=== PATIENT | female | born 1960 | race Caucasian/White ===

== ENCOUNTER 2021-12-04 07:16 | Outpatient (CLI) | payer OTHER, SELFPAY ==
--- NOTE | ~2021-12-04 | MM_ITS ---
EXAMINATION: MM screening sharee LT w lindsey HISTORY: Screening mammogram; status post left mastectomy in 1988 TECHNIQUE: Craniocaudal and mediolateral oblique 3-D tomosynthesis images were obtained and synthetic 2-D images were generated. CAD analysis was submitted and interpreted. COMPARISON: 08/05/2018 right screening mammogram BREAST PARENCHYMAL COMPOSITION: There are scattered areas of fibroglandular density. FINDINGS: There is no evidence of suspicious mass, calcification, or architectural distortion to sugg est malignancy in either breast. There has been no suspicious interval change. IMPRESSION: 1. No mammographic evidence of malignancy. 2. Recommend routine screening mammography in one year. BI-RADS Category 1: Negative Reviewed, dictated and finalized at location A.
== END 2021-12-04 07:17 | disposition home or self-care (01) ==
PROVIDERS: Visit Provider Family Medicine
DX: Z12.31 Encounter for screening mammogram for malignant neoplasm of breast (principal)
CPT/HCPCS: 77063; 77067

== ENCOUNTER → 2023-01-25 15:24 | Outpatient (CLI) | payer OTHER, SELFPAY ==
--- NOTE | ~2023-01-25 | US_ITS ---
EXAMINATION: US renal BI DATE: 01/25/2023 15:53 INDICATION: Hematuria TECHNIQUE: Multiple ultrasound grayscale images of the kidneys were obtained. COMPARISON: None. FINDINGS: The right kidney measures 10.3 x 4.2 x 5.0 cm. The left kidney measures 10.4 x 5.6 x 4.8 cm. The kidn eys demonstrate normal echogenicity. There is focal bulge along the periphery of the interpolar regio n of the left kidney with suggestion of a poorly defined approximately 2.5 cm isoechoic mass. There i s no hydronephrosis in either kidney. No stones identified. The bladder is normal. There are couple anechoic cysts in the right hepatic lobe the larger measuring 2.4 cm maximal diameter. IMPRESSION: 1. Possible 2.5 cm mass at the interpolar region of the left kidney. Alternatively could represent a normal variant dromedary hump or retained lobulation. Would recommend further evaluation with pre and postcontrast MRI or CT particularly given the history of hematuria. Reviewed, dictated and finalized at location A. IMPRESSION: 1. Possible 2.5 cm mass at the interpolar region of the left kidney. Alternati vely could represent a normal variant dromedary hump or retained lobulati on. Would recommend further evaluation with pre and postcontrast MRI or CT part icularly given the history of hematuria.
== END ==
PROVIDERS: PCP Family Medicine; Visit Provider Family Medicine
DX: R31.9 Hematuria, unspecified (principal); D50.9 Iron deficiency anemia, unspecified
CPT/HCPCS: 76775

== ENCOUNTER → 2023-02-10 07:45 | Outpatient (CLI) | payer OTHER, SELFPAY ==
--- NOTE | ~2023-02-10 | MR_ITS ---
EXAMINATION: MR renal wo/w con DATE: 02/10/2023 08:51 INDICATION: Abnormal contour to the left kidney on prior ultrasound. TECHNIQUE: Magnetic resonance imaging (MRI) of the abdomen was performed without and with 16 mL Multi sarah intravenous contrast. Sequences included coronal T2-weighted SS-FSE, coronal and axial FS 2D-F IESTA, axial STIR FSE, axial T2-weighted SS-FSE, axial T2-weighted FS SS-FSE, axial diffusion-weighte d SE, axial dual-echo T1-weighted FSPGR, and axial and coronal T1-weighted LAVA. Postcontrast axial T 1-weighted LAVA images were obtained in a time course. Postcontrast coronal T1-weighted LAVA images w ere obtained. COMPARISON: Ultrasound dated 01/25/2023 and MRI dated 04/20/2017 FINDINGS: Arch size is normal. No pericardial or pleural effusion. Status post left mastectomy with left breast implant. Small sliding-type hiatal hernia. There are few T2 hyperintense nonenhancing hepatic cysts the largest at the caudal tip of the right hepatic lobe measuring up to 3.1 cm. Gallbladder, spleen, pancreas and bilateral adrenal glands are normal. Dromedary hump at the lateral left kidney resulting from mass effect from the adjacent spleen and extending from the appearance on prior ultrasound. 4 m m T2 hyperintense nonenhancing cyst at the upper pole of the right kidney. Visualized portions of bow els are unremarkable. No pathologically enlarged abdominal lymphadenopathy. T1 hyperintense fat satur ating likely hematoma at the L1 vertebral body. IMPRESSION: 1. Dromedary hump at the lateral left kidney accounting for appearance on prior ultrasound. No concer abdullahi renal lesions identified. 2. Small sliding-type hiatal hernia. Reviewed, dictated and finalized at location A. IMPRESSION: 1. Dromedary hump at the lateral left kidney accounting for appearance on prior ultrasound. No concerning renal lesions identified. 2. Small sliding-type hiatal hernia.
== END ==
PROVIDERS: PCP Family Medicine; Visit Provider Family Medicine
DX: N28.89 Other specified disorders of kidney and ureter (principal); R31.9 Hematuria, unspecified; K44.9 Diaphragmatic hernia without obstruction or gangrene
CPT/HCPCS: 74183; A9577

== ENCOUNTER 2023-04-23 00:18 | Day surgery (SDC) | payer OTHER, SELFPAY ==
[2023-04-07 13:34] VITALS: BMI 27.6
--- NOTE | 2023-04-21 10:22 | SUR.PREOP ---
Patient called regarding upcoming procedure. Reviewed preop instructions, appointment times, and procedure prep.
--- NOTE | 2023-04-21 15:59 | PM.HPGS ---
History of Present Illness History of Present Illness Consent: Risks, benefits, and alternatives have been discussed and questions answered. Patient agrees to proceed with procedure. Chief complaint: hx colon polyps, Iron Deficency Anemia, GERD Narrative: Karsten Jorge is a 63 year old female who will be investigated for iron deficiency anemia, GERD and history of colon polyps at the request of PCP and Oncology Dr. Holliday.? Past medical history of hypothyroidism, hyperlipidemia, hypertension, breast cancer status post mastectomy at the age of 29, total hysterectomy, hemorrhoidectomy, appendectomy, carpal tunnel release.? She was seen by Dr. Holliday for microcytic anemia secondary to iron deficiency and was treated with a hemoglobin of 10 and a ferritin of 5-she was intolerant to oral iron and was given 3 iron infusions. Recent hgb 14 and ferritin still low at 9.? She denies any change in bowel habits, constipation, diarrhea, melena or hematochezia.? She does take omeprazole 40 mg daily but states if she misses a dose she will wake up in the morning feeling like liquids and solids will get stuck near epigastric region. Review of Systems Review of Systems: All systems reviewed & are unremarkable except as noted in HPI and below PMFSH Past Medical History Medical History Dysphagia Flank pain Ileus Internal and external prolapsed hemorrhoids Renal colic Surgical History Surgical History H/O colonoscopy History of mastectomy Family History Family History Father Family history of cardiovascular disease Family history of gastrointestinal disorder Grandparent Carcinoma of colon Mother Family history of primary malignant neoplasm of liver Diabetes mellitus Sibling Diabetes mellitus Family history of gastrointestinal disorder Other Family history of malignant neoplasm Social History Social History Smoking status: Former smoker Second hand tobacco smoke exposure: No Smoking end date: 05/10/79 Alcohol intake: current Substance use type: does not use Lack of Transportation: No Lack of Food: Never True Current Housing: I Have Housing Concerned About Future Housing: No Difficulty Paying Gas/Electric Bills: No Difficulty Paying for Meds: No Currently Unemployed: No Education: Associate Degree Difficulty w/ Childcare or Family Care: No Living arrangements: with family Spiritual care concerns: No Meds Home Medications and Allergies Home Medications Medication Instructions Recorded Confirmed Type atorvastatin 10 mg tablet See Rx Instructions .Route 06/02/22 04/07/23 Rx .COMPLEX #90 tabs hydrochlorothiazide 12.5 mg capsule See Rx Instructions .Route 06/02/22 04/07/23 Rx .COMPLEX #90 caps venlafaxine 37.5 mg tablet See Rx Instructions .Route 06/02/22 04/07/23 Rx .COMPLEX #90 tabs levothyroxine 100 mcg tablet See Rx Instructions .Route 10/08/22 04/07/23 Rx .COMPLEX #90 tabs omeprazole 40 mg capsule,delayed 40 mg PO DAILY #90 caps 01/21/23 04/07/23 Rx release sumatriptan succinate 50 mg tablet See Rx Instructions .Route 04/07/23 04/07/23 History .COMPLEX PRN Headache Allergies Allergy/AdvReac Type Severity Reaction Status Date / Time No Known Allergies Allergy Verified 04/23/23 06:46 Exam Const: General: alert Orientation/consciousness: patient oriented x3 Resp: Auscultation: clear to auscultation bilaterally Cardio: Rhythm: regular rhythm GI: GI Palp: Yes Soft to palpation and No Tenderness to palpation present (GI) Neuro: General: patient oriented x3 Assessment and Plan Assessment and plan (1) Iron deficiency anemia: Qualifiers: Iron deficiency anemia type: unspecified iron deficiency Qualified Code(s): D50.9 -
[2023-04-23 06:47] VITALS: BP 148/77; PULSE 98; RESP 18; TEMP 36.1; O2SAT 97
[2023-04-23] MEDS: LACTATED RINGERS 1,000 ML 150 ML IV CONT (06:55)
--- NOTE | 2023-04-23 07:17 | WPDANESEPPF ---
Anes - Initial Pre Proc Eval Procedure: Operation Date: 04/23/23 08:00 Proposed Procedures p Esophagogastroduodenoscopy & Colonoscopy - Gautam Martinez MD Date/Time: 04/23/23 07:17 Surgeon: Gautam Martinez MD Pre Op Diagnosis: hx colon polyps, Iron Deficency Anemia, GERD Patient Data Age: 63 Gender: F Height: 1.68 m Weight: 81.8 kg Last Vital Signs Temp 36.1 C L 04/23/23 06:47 Pulse 98 04/23/23 06:47 Resp 18 04/23/23 06:47 BP 148/77 H 04/23/23 06:47 Pulse Ox 97 04/23/23 06:47 O2 Del Method Room Air 04/23/23 06:47 Allergies Allergy/AdvReac Type Severity Reaction Status Date / Time No Known Allergies Allergy Verified 04/23/23 06:46 Home Medications Medication Instructions Recorded Confirmed Type atorvastatin 10 mg tablet See Rx Instructions .Route 06/02/22 04/07/23 Rx .COMPLEX #90 tabs hydrochlorothiazide 12.5 mg capsule See Rx Instructions .Route 06/02/22 04/07/23 Rx .COMPLEX #90 caps venlafaxine 37.5 mg tablet See Rx Instructions .Route 06/02/22 04/07/23 Rx .COMPLEX #90 tabs levothyroxine 100 mcg tablet See Rx Instructions .Route 10/08/22 04/07/23 Rx .COMPLEX #90 tabs omeprazole 40 mg capsule,delayed 40 mg PO DAILY #90 caps 01/21/23 04/07/23 Rx release sumatriptan succinate 50 mg tablet See Rx Instructions .Route 04/07/23 04/07/23 History .COMPLEX PRN Headache Patient hx anesthesia problems: none Family hx anesthesia problems: none Results Review: All pre-operative results and documents have been reviewed as part of the pre-operative evaluation. [facility] Past Medical History Medical History Dysphagia Flank pain Ileus Internal and external prolapsed hemorrhoids Renal colic Surgical History Surgical History (Updated 04/23/23 @ 07:18 by Devyn Lee MD) H/O colonoscopy History of mastectomy Family History Family History Father Family history of cardiovascular disease Family history of gastrointestinal disorder Grandparent Carcinoma of colon Mother Family history of primary malignant neoplasm of liver Diabetes mellitus Sibling Diabetes mellitus Family history of gastrointestinal disorder Other Family history of malignant neoplasm Social History Social History (Updated 04/23/23 @ 07:18 by Devyn Lee MD) Smoking status: Former smoker Second hand tobacco smoke exposure: No Smoking end date: 05/10/79 Alcohol intake: current Substance use type: does not use Lack of Transportation: No Lack of Food: Never True Current Housing: I Have Housing Concerned About Future Housing: No Difficulty Paying Gas/Electric Bills: No Difficulty Paying for Meds: No Currently Unemployed: No Education: Associate Degree Difficulty w/ Childcare or Family Care: No Living arrangements: with family Spiritual care concerns: No Anes - Eval Final PreProcedure Day of Procedure 04/23/23 07:17 Patient weight: overweight Heart: regular rate and rhythm Lungs: clear to auscultation Airway: Mallampati scale class II Neurological: alert and oriented Last oral intake: >/= 8 hours ASA classification: III Emergent: no Anesthetic plan: proceed Anesthesia type and monitoring: general GIVS and standard monitoring Results Review: All pre-operative results and documents have been reviewed as part of the pre-operative evaluation. Informed Consent: The patient's anesthetic plan and its attendant risks and benefits were discussed with the patient/family/POA. Questions were solicited and answers provided to the satisfaction of the patient/family/POA.
--- NOTE | 2023-04-23 08:13 | SUR.OPER ---
EGD ended at 805 and colonoscopy started to 813
[2023-04-23 08:29] VITALS: BP 94/52; PULSE 89; RESP 22; O2SAT 97
[2023-04-23 08:39] VITALS: BP 100/59; PULSE 79; RESP 19; O2SAT 98
[2023-04-23 08:49] VITALS: BP 98/58; PULSE 61; RESP 22; O2SAT 96
== END 2023-04-23 09:03 | disposition home or self-care (01) ==
PROVIDERS: PCP Family Medicine; Visit Provider Internal Medicine Gastroenterology
PROC: 0DJ08ZZ Inspection of Upper Intestinal Tract, Via Natural or Artificial Opening Endoscopic (ICD-10-PCS; CPT 43235; principal; 2023-04-23 08:00)
DX: D50.9 Iron deficiency anemia, unspecified (principal); K62.1 Rectal polyp; K64.8 Other hemorrhoids; K52.9 Noninfective gastroenteritis and colitis, unspecified; K44.9 Diaphragmatic hernia without obstruction or gangrene; K31.7 Polyp of stomach and duodenum; K20.0 Eosinophilic esophagitis; Z87.891 Personal history of nicotine dependence
CPT/HCPCS: 45380; 43239; 43251; 88305; J2704; J7120

== ENCOUNTER 2023-12-20 08:35 | Outpatient (CLI) | payer OTHER, SELFPAY ==
--- NOTE | ~2023-12-20 | MM_ITS ---
EXAMINATION: MM screening sharee RT w lindsey HISTORY: Screening TECHNIQUE: Craniocaudal and mediolateral oblique 3-D tomosynthesis images were obtained and synthetic 2-D images were generated. CAD analysis was submitted and interpreted. COMPARISON: Comparison to multiple prior studies sequentially, with oldest reviewed study dated 09/24. BREAST PARENCHYMAL COMPOSITION: There are scattered areas of fibroglandular density. FINDINGS: There is no evidence of suspicious mass, calcification, or architectural distortion to sugg est malignancy in either breast. There has been no suspicious interval change. IMPRESSION: 1. No mammographic evidence of malignancy. 2. Recommend routine screening mammography in one year. BI-RADS Category 1: Negative Reviewed, dictated and finalized at location B.
== END 2023-12-20 08:36 | disposition home or self-care (01) ==
LOC: ANHIMG 08:37
PROVIDERS: PCP Family Medicine; Visit Provider Family Medicine
DX: Z12.31 Encounter for screening mammogram for malignant neoplasm of breast (principal)
CPT/HCPCS: 77063; 77067

== ENCOUNTER 2024-05-08 08:56 | Outpatient (CLI) | payer OTHER, SELFPAY ==
--- NOTE | ~2024-05-08 | XR_ITS ---
EXAMINATION: XR hand RT 2V DATE: 05/08/2024 09:12 INDICATION: Right hand pain. TECHNIQUE: 2 views of right hand were obtained. COMPARISON: None. FINDINGS: Alignment is normal. No fracture. There is mild osteoarthritis of fifth proximal and distal interphalangeal joints and second distal interphalangeal joint. IMPRESSION: 1. Mild polyarticular osteoarthritis. Reviewed, dictated and finalized at location A. RONMENTAL SERVICES SPECIALIST
== END 2024-05-08 08:57 | disposition home or self-care (01) ==
LOC: GOSHIMG 08:56
PROVIDERS: PCP Student in an Organized Health Care Education/Training Program; Visit Provider Student in an Organized Health Care Education/Training Program
DX: M19.041 Primary osteoarthritis, right hand (principal)
CPT/HCPCS: 73120

== ENCOUNTER 2024-05-16 08:38 | Outpatient (CLI) | payer OTHER, SELFPAY ==
--- NOTE | ~2024-05-16 | US_ITS ---
Renal-Bladder ultrasound Clinical History: Hematuria Technique: Real-time sonographic imaging of the kidneys and urinary bladder was performed. Findings: The right kidney measures 10.7 cm in length and the left kidney measures 9.9 cm. There is n o hydronephrosis or renal calculus identified. Renal cortical echogenicity is within normal limits. N o renal mass evident. The urinary bladder is moderately distended at the time of this exam. No intraluminal echoes are iden tified. No abnormal wall thickening is seen. Impression: No significant abnormalities. Reviewed, dictated and finalized at location M. TIVE MANAGER Impression: No significant abnormalities.
== END 2024-05-16 08:39 | disposition home or self-care (01) ==
LOC: GOSHIMG 08:38
PROVIDERS: PCP Student in an Organized Health Care Education/Training Program; Visit Provider Student in an Organized Health Care Education/Training Program
DX: R31.9 Hematuria, unspecified (principal)
CPT/HCPCS: 76775

== ENCOUNTER 2024-07-17 08:22 | Outpatient (CLI) | payer OTHER, SELFPAY ==
--- NOTE | ~2024-07-17 | CT_ITS ---
CT abdomen pelvis wo con Ordering provider: Ned Zapata APRN History: 64 years Female with . Unspecified symptoms and signs involving the roxanna... . Comparison: March 31, 2017 Technique: CT abdomen and pelvis without IV and without oral contrast. Automated exposure control and iterative reconstruction technique were employed. The dose-length product was 571.19 mGy-cm. Findings: VISUALIZED LOWER CHEST: Normal. Trace of pericardial effusion. UPPER ABDOMINAL ORGANS: Liver: Hypodensities in segment 6 Slightly larger than the previous study most likely cysts. Ultrasou nd confirmation advised.. Gallbladder: Contracted. Spleen: Normal. Stomach/duodenum: Sliding hiatus hernia. Pancreas: Normal. Adrenals: Normal. Kidneys: Bilateral tiny kidney stones. No definite ureteric stones. No hydronephrotic changes. Calcif ications seen in the left side of the pelvis are most likely outside the ureter. PELVIC ORGANS: The bladder is underfilled. BOWEL AND MESENTERY: Colon: No evidence of diverticulitis.. No evidence of appendicitis. Small Bowel: Normal. No obstruction. Peritoneum/mesentery: No free air or free fluid. No mesenteric lymphadenopathy. RETROPERITONEUM: Normal aorta. No retroperitoneal lymphadenopathy. MUSCULOSKELETAL: Superficial soft tissues: The superficial soft tissues are normal. Bones: Age appropriate degenerative changes of the spine. IMPRESSION: 1. No evidence of appendicitis, diverticulitis or intestinal obstruction. 2. Tiny bilateral kidney stones. 3. Hypodensities in the liver which appear larger than the previous study most likely cysts. Ultraso und evaluation advised. 4. Sliding hiatus hernia. Reviewed, dictated and finalized at location A. IMPRESSION: 1. No evidence of appendicitis, diverticulitis or intestinal obstruction. 2. Tiny bilateral kidney stones. 3. Hypodensities in the liver which appear larger than the previous study most likely cysts. Ultrasound evaluation advised. 4. Sliding hiatus hernia.
== END 2024-07-17 08:23 | disposition home or self-care (01) ==
PROVIDERS: PCP Family Medicine; Visit Provider Student in an Organized Health Care Education/Training Program
DX: R39.9 Unspecified symptoms and signs involving the genitourinary system (principal); R10.9 Unspecified abdominal pain; N20.0 Calculus of kidney; K44.9 Diaphragmatic hernia without obstruction or gangrene
CPT/HCPCS: 74176

== ENCOUNTER 2024-07-31 08:12 | Outpatient (CLI) | payer OTHER, SELFPAY ==
--- NOTE | ~2024-07-31 | US_ITS ---
Limited ABDOMINAL ULTRASOUND Ordering provider: Brittani Enciso MD History: . R93.2 - Abnormal findings on diagnostic imaging of liver ... . Comparison: None. FINDINGS: LIVER: Normal size and echotexture. 2 cysts are seen measuring 2.4 x 2.9 x 2.5 cm and 1.7 x 1.8 x 1.3 cm. No focal hepatic lesions or perihepatic fluid collections are identified. Normal flow of the portal vein. GALLBLADDER: Unremarkable. No evidence for stones, sludge, gallbladder wall thickening or pericholecy stic fluid collections. A negative sonographic Leon's sign was noted. BILIARY DUCTS: No evidence for intra or extrahepatic biliary dilation. Common bile duct measures 3 mm in diameter which is within normal limits. PANCREAS: Normal echotexture and size. UPPER ABDOMINAL AORTA: Normal in caliber. IVC: Patent. FREE FLUID: None. IMPRESSION: Hepatic cysts. Otherwise, Unremarkable limited ultrasound of the abdomen. Reviewed, dictated and finalized at location A.
== END 2024-07-31 08:13 | disposition home or self-care (01) ==
LOC: GOSHIMG 08:12
PROVIDERS: PCP Family Medicine; Visit Provider Family Medicine
DX: R93.2 Abnormal findings on diagnostic imaging of liver and biliary tract (principal); K76.89 Other specified diseases of liver
CPT/HCPCS: 76705

== ENCOUNTER 2025-02-22 08:08 | Outpatient (CLI) | payer OTHER, SELFPAY ==
--- NOTE | ~2025-02-22 | DEXA_ITS ---
Bone Density Report Name: MIHIR HWANG Age: 64 Sex: Female Ethnicity: White Date of : 1960 Indication: postmenopausal; screening for osteoporosis; Referring Provider: DULCE MARIA THOMAS Study: Bone densitometry was performed. Exam Date: February 22, 2025 Accession number: [id number] Bone Density: Region BMD T-score Z-score Classification AP Spine(L1-L4) 0.925 -1.1 0.6 Osteopenia Femoral Neck (Left) 0.775 -0.7 0.8 Normal Total Hip (Left) 0.894 -0.4 0.8 Normal Femoral Neck (Right) 0.738 -1.0 0.5 Normal Total Hip (Right) 0.871 -0.6 0.6 Normal Total Hip Mean 0.883 -0.5 0.7 Normal World Health Organization criteria for BMD impression classify patients as: Normal (T-score at or above -1.0), Osteopenia (T-score between -1.0 and -2.5), or Osteoporosis (T-score at or below -2.5). 10-year Fracture Risk(1): Major Osteoporotic Fracture 7.9% Hip Fracture 0.5% Reported Risk Factors: [place] (), Neck BMD=0.738, BMI=25.8 (1) FRAX(R) Version 3.08. Fracture probability calculated for an untreated patient. Fracture probability may be lower if the patient has received treatment. Impression: The patient has low bone mass, based on the Total Spine T-score. The patient has an estimated ten-year risk of hip fracture of 0.5% and an estimated ten-year risk of major fracture of 7.9%, based on the WHO FRAX algorithm. Discussion: BONE DENSITY IS LOW AT ONE OR MORE SKELETAL SITES. This patient's lowest T-score is low at one or more skeletal sites. It meets the World Health Organization's (WHO) criteria for ?low bone mass? (T-score between -1.0 and -2.5). The patient's 10-year risk of fracture as calculated by FRAX is less than the threshold where pharmacological therapy is recommended by the National Osteoporosis Foundation (NOF). However, all treatment decisions require clinical judgment and consideration of individual patient factors, including patient preferences, comorbidities, previous drug use, risk factors not captured in the FRAX model (e.g., frailty, falls, vitamin D deficiency, increased bone turnover, interval significant decline in bone density) and possible under or overestimation of fracture risk by FRAX. The patient should follow a healthful lifestyle (good nutrition with adequate calcium and vitamin D, and appropriate weight-bearing exercise). Follow-Up: Consider repeating this study in 2 to 3 years to reassess this patient's status, or sooner if there is some new clinical indication. Reported by: GALEN on 02/22/2025 9:06:00 AM. Reviewed, dictated and finalized at location A.
--- NOTE | ~2025-02-22 | MM_ITS ---
EXAMINATION: MM screening sharee RT w lindsey HISTORY: Screening TECHNIQUE: Craniocaudal and mediolateral oblique 3-D tomosynthesis images were obtained and synthetic 2-D images were generated. CAD analysis was submitted and interpreted. COMPARISON: 12/20/2023 BREAST PARENCHYMAL COMPOSITION: There are scattered areas of fibroglandular density. FINDINGS: There is no evidence of suspicious mass, calcification, or architectural distortion to suggest malignancy. There has been no suspicious interval change. IMPRESSION: 1. No mammographic evidence of malignancy. Recommend routine screening mammography in one year. BI-RADS Category 2: Benign finding(s) Reviewed, dictated and finalized at location Q. IMPRESSION: 1. No mammographic evidence of malignancy. Recommend routine screening mammogra phy in one year. BI-RADS Category 2: Benign finding(s)
--- OUTSIDE RECORDS SUMMARY | 2025-02-22 08:12 | XMS_ITS | Encounter Summary ---
Author Organization [facility] Address [address] [place] [address] Care Team Providers Care Data Processing Equipment Repairer Name Role Phone Dudley Enciso MD Primary Care Provider [phone]- [phone] Encounter Details Date Type Department Care Team (Latest Contact Info) Description 05/18/2001 Outpatient Historical HIS [facility] PAULINE Fox, Kiara Donnelly MD NO ADDRESS ON FILE PERS HX OF BREAST MALIGNANCY (Primary Dx) Social History Tobacco Use Types Packs/Day Years Used Date Smoking Tobacco: Never Assessed Comments Unknown Sex and Gender Information Value Date Recorded Sex Assigned at Not on file Legal Sex Female 3:06 AM SOFTBALL UMPIRE Gender Identity Not on file Sexual Orientation Not on file documented as of this encounter Plan of Treatment Not on file documented as of this encounter Visit Diagnoses Diagnosis Personal history of malignant neoplasm of breast- Primary documented in this encounter Care Teams Data Processing Equipment Repairer Relationship Specialty Start Date End Date Dudley Enciso MD PCP - General Family Practice 11/25/21 documented as of this encounter
--- OUTSIDE RECORDS SUMMARY | 2025-02-22 08:12 | XMS_ITS | Encounter Summary ---
Author Organization [facility] Address [address] [place] [address] Care Team Providers Care Inspector Integrated Circuits Name Role Phone Dudley Enciso MD Primary Care Provider [phone]- [phone] Encounter Details Date Type Department Care Team (Late st Contact Info) Description 07/09/1999 Outpatient Historical HIS [facility] Kyler Song MD [address] [place] [address] [id number] Malignant neoplasm of breast (female), unspecified site (Primary Dx) Social History Tobacco Use Types Packs/Day Years Used Date Smoking Tobacco: Never Assessed Comments Unknown Sex and Gender Information Value Date Recorded Sex Assigned at Not on file Legal Sex Female 3:06 AM CUSTOMER SUCCESS ASSOCIATE Gender Identity Not on file Sexual Orientation Not on file documented as of this encounter Plan of Treatment Not on file documented as of this encounter Visit Diagnoses Diagnosis Malignant neoplasm of breast (female), unspecified site- Primary documented in this encounter Care Teams Inspector Integrated Circuits Relationship Specialty Start Date End Date Dudley Enciso MD PCP - General Family Practice 11/25/21 documented as of this encounter
--- OUTSIDE RECORDS SUMMARY | 2025-02-22 08:12 | XMS_ITS | Clinical Summary ---
Author Organization [facility] Address [address] [place] [address] Care Team Providers Care Spray Blender Name Role Phone Unavailable Primary Care Provider Unavailabl e Social History Tobacco Use Types Packs/Day Years Used Date Smoking Tobacco: Never Assessed Comments Unknown Sex and Gender Information Value Date Recorded Sex Assigned at Not on file Legal Sex Female 8:06 PM CDT Gender Identity Not on file Sexual Orientation Not on file Plan of Treatment Health Maintenance Due Date Last Done Comments Cervical Cancer Screening Pa p Smear (Age 30 to 64) Every 3 Years 1961 Colorectal Cancer Screening Colonoscopy (10 Years) 1961 Annual Physical 1964 Hepatitis C 1979 DTaP, Tdap and Td Vaccines ( 1 - Tdap) 1980 Cervical Cancer Screening Pa p with HPV Testing (Age 30 to 64) Every 5 Years 1991 Cervical Cancer Screening with HPV 1991 Mammogram Screening 2001 Pneumococcal Vaccine: 50+ Ye ars (1 of 1 - PCV) 2011 Zoster Vaccines (1 of 2) 2011 COVID-19 Vaccine ( - 2023-2 5 season) 2025 Influenza Adult (#1) 2025 RSV Immunization or 60+ Years (1 - 1-dose 75+ series) 2036 Meningococcal B Vaccine Aged Out No l onger eligible based on patient's age to complete this topic Meningococcal Vaccine Aged Out No sebas ibis eligible based on patient's age to complete this topic RSV Immunizations Under 20 Months Aged Out No longer eligible based on patient's age to complete this topic
--- OUTSIDE RECORDS SUMMARY | 2025-02-22 08:12 | XMS_ITS | Clinical Summary ---
Author Organization [facility] Address [address] [facility] [address] Care Team Providers Care Battery Filler Name Role Phone Dudley Enciso MD Primary Care Provider +1- [phone] Allergies No known active allergies Medications omeprazole (PriLOSEC) 40 mg Capsule, Delayed Release(E.C.) 09/03/2021 Activ e atorvastatin (LIPITOR) 10 mg tablet 10/03/2021 Active hydroCHLOROthiazid e (MICROZIDE) 12.5 mg capsule 10/03/2021 Active Synthroid 100 mcg tablet 10/30/2021 Active venlafaxine (EFFEXOR) 37.5 mg tablet 11/13/2021 Active Active Problems Problem Noted Date Diagnosed Date Iron deficiency anemia 11/25/2021 Family History Medical History Relation Name Comments Cancer Father Heart Disease Father Cancer Mother Diabetes Mother Diabetes Sister Relation Name Status Comments Father Mother Sister Alive Social History Tobacco Use Types Packs/Day Years Used Date Smoking Tobacco: Never Alcohol Use Standard Drinks/Week Comments Yes 0 (1 standard drink = 0.6 oz pur e alcohol) Comments Unknown Sex and Gender Information Value Date Recorded Sex Assigned at Not on file Legal Sex Female 3:06 AM JOINT CUTTER Gender Identity Not on file Sexual Orientation Not on file Last Filed Vital Signs Vital Sign Reading Time Taken Comments Blood Pressure 125/75 11/25/2021 2:46 PM CDT Pulse 75 11/25/2021 2:46 PM CDT Temperature 37 C (98.6 F) 11/25/2021 2:46 PM CDT Respiratory Rate - - Oxygen Saturation 98% 11/25/2021 2:46 PM CDT Inhaled Oxygen Concentration - - Weight 79.3 kg (174 lb 12.8 oz) 11/25/2021 2:46 PM CDT Height 167.6 cm (5' 6) 11/25/2021 2:46 PM CDT Body Mass Index 28.21 11/25/2021 2:46 PM CDT Plan of Treatment Health Maintenance Due Date Last Done Comments DTAP/TDAP/TD VACCINES (1 - Tdap) 1980 HPV/Cotest (21-29) 1982 CERVICAL CANCER SCREENING 1991 HPV/Cotest (30-65) 1991 PAP SMEAR 1991 BREAST CANCER SCREENING 2001 COLORECTAL SCREENING 2006 Colorectal Cancer Screening 2006 FIT-DNA Q 3 years 2006 FIT/FOBT Q 1 year 2006 Flex Sig/CT Colonography Q 5 years 2006 ZOSTER VACCINE (1 of 2) 2011 INFLUENZA VACCINE (#1) 2024 RSV VACCINE (60+ or ) (1 - 1-dose 75+ series) 2036 Insurance BENEFIT PLANS BENEFIT PLANS Care Teams Battery Filler Relationship Specialty Start Date End Date Dudley Enciso MD PCP - General Family Practice 11/25/21
--- OUTSIDE RECORDS SUMMARY | 2025-02-22 08:12 | XMS_ITS | Encounter Summary ---
Author Organization [facility] [employer] Address [address] [place] [address] Care Team Providers Care Concrete Foreman Name Role Phone Dudley Enciso MD Primary Care Provider +1- [phone] Encounter Details Date Type Department Care Team (Latest Contact Info) Description 09/14/2001 Inpatient Historical [facility] Sanju Pelayo MD NO ADDRESS ON FILE OVARIAN ENDOMETRIOSIS (Primary Dx) Social History Tobacco Use Types Packs/Day Years Used Date Smoking Tobacco: Never Assessed Comments Unknown Sex and Gender Information Value Date Recorded Sex Assigned at Not on file Legal Sex Female 3:06 AM WINDOWS SYSTEMS ADMINISTRATOR Gender Identity Not on file Sexual Orientation Not on file documented as of this encounter Plan of Treatment Not on file documented as of this encounter Visit Diagnoses Diagnosis Endometriosis of ovary- Primary documented in this encounter Care Teams Concrete Foreman Relationship Specialty Start Date End Date Dudley Enciso MD PCP - General Family Practice 11/25/21 documented as of this encounter
--- OUTSIDE RECORDS SUMMARY | 2025-02-22 08:12 | XMS_ITS | Encounter Summary ---
Author Organization [facility] Address [address] [place] [address] Care Team Providers Care Museum Attendant Name Role Phone Dudley Enciso MD Primary Care Provider [phone] Encounter Details Date Type Department Care Team (Late st Contact Info) Description 07/16/2000 Outpatient Historical [facility] Kyler Song MD [address] [place] [address] [address] Personal history of malignant neoplasm of breast (Primary Dx) Social History Tobacco Use Types Packs/Day Years Used Date Smoking Tobacco: Never Assessed Comments Unknown Sex and Gender Information Value Date Recorded Sex Assigned at Not on file 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
== END 2025-02-22 08:09 | disposition home or self-care (01) ==
LOC: ANHFOHIMG 08:09
PROVIDERS: PCP Family Medicine; Visit Provider Family Medicine
DX: Z12.31 Encounter for screening mammogram for malignant neoplasm of breast (principal); Z13.820 Encounter for screening for osteoporosis; Z78.0 Asymptomatic menopausal state; M85.88 Other specified disorders of bone density and structure, other site
CPT/HCPCS: 77063; 77067; 77080